=== PATIENT | female | born 1945 | race Caucasian/White ===

== ENCOUNTER → 2021-03-28 | Outpatient (CLI) | payer MEDICARE ==
[~2021-03-28] MED LIST: ATOR20 PO; Advil200 M1 PO; Aspir 8181 MG PO; B-COMPLEX WITH1 EAC1 PO; Lisinopril-Hct1 EAC4; MAGCHL64ER PO; Multiple Vitam1 EAC1 PO; VITAMIN D-32000 UNIT PO; Vitamin C100 MG PO
== END | disposition home or self-care (01) ==
LOC: LAB 11:01 → LAB SHORT 11:01
DX: D22.62 Melanocytic nevi of left upper limb, including shoulder (principal)
CPT/HCPCS: 88305

== ENCOUNTER 2021-05-23 09:08 | Day surgery (SDC) | payer MEDICARE ==
[~2021-05-23] VITALS: Ht 167.6 cm; Wt 90.6 kg
== END 2021-05-23 11:43 | disposition home or self-care (01) ==
LOC: ORSCSDS 09:08
PROVIDERS: Internal Medicine Gastroenterology
PROC: 0DBM8ZX Excision of Descending Colon, Via Natural or Artificial Opening Endoscopic, Diagnostic (ICD-10-PCS; principal; 2021-05-23 10:30)
PROC: 0DBN8ZX Excision of Sigmoid Colon, Via Natural or Artificial Opening Endoscopic, Diagnostic (ICD-10-PCS; principal; 2021-05-23 10:30)
PROC: 3E0H8KZ Introduction of Other Diagnostic Substance into Lower GI, Via Natural or Artificial Opening Endoscopic (ICD-10-PCS; principal; 2021-05-23 10:30)
DX: Z12.11 Encounter for screening for malignant neoplasm of colon (principal); D12.4 Benign neoplasm of descending colon; D12.5 Benign neoplasm of sigmoid colon; K57.30 Diverticulosis of large intestine without perforation or abscess without bleeding; Z86.010 Personal history of colon polyps; I10 Essential (primary) hypertension; Z79.899 Other long term (current) drug therapy; Z87.891 Personal history of nicotine dependence
CPT/HCPCS: 88305; J2704; J7120